=== PATIENT | female | born 1960 | race Caucasian/White ===

== ENCOUNTER → 2018-05-04 | Outpatient (CLI) | payer BC ==
--- NOTE | 2018-05-04 08:11 | US ---
EXAMINATION TYPE: US abdomen complete DATE OF EXAM: 05/04/2018 COMPARISON: NONE CLINICAL HISTORY: R94.5 Abnormal results of liver function studies. Abnormal labs EXAM MEASUREMENTS: Liver Length: 18.0 cm Gallbladder Wall: 0.2 cm CBD: 0.5 cm Spleen: 9.5 cm Right Kidney: 9.3 x 3.7 x 4.4 cm Left Kidney: 10.7 x 4.0 x 4.2 cm Pancreas: wnl, tail obscured by overlying bowel gas Liver: Difficult to penetrate, heterogeneous with probable fatty sparing near GB, cyst left lobe= 4. 3 x 3.2 x 4.3 cm Gallbladder: wnl Evidence for sonographic Kauffman's sign: No CBD: wnl Spleen: wnl Right Kidney: wnl Left Kidney: wnl Upper IVC: wnl Abd Aorta: wnl, distal portion gassed out The intrahepatic portion of the IVC and proximal abdominal aorta are within normal limits. There is no evidence of cholelithiasis. Common bile duct is unremarkable. The visualized portions of the pa ncreas are homogenous. The spleen is unremarkable. Kidneys are symmetric and free of hydronephrosis . No renal lesions are seen. IMPRESSION: 1. Probable hepatic steatosis with areas of focal fatty sparing. Hepatic cyst as noted.
== END ==
LOC: RADUSWWP 07:31
PROVIDERS: ATTEND Family Medicine
DX: K76.89 Other specified diseases of liver (principal)
CPT/HCPCS: 76700

== ENCOUNTER → 2018-12-21 | Outpatient (CLI) | payer BC ==
--- NOTE | 2018-12-21 18:17 | MR ---
EXAMINATION TYPE: MR shoulder RT wo con DATE OF EXAM: 12/21/2018 COMPARISON: Plain film 10/16/2018 HISTORY: Pain in right shoulder, fall TECHNIQUE: Multiplanar, multisequence imaging of the right shoulder is performed without contrast. FINDINGS: Rotator Cuff: There is a complete rotator cuff tear with retraction of the supraspinatus tendon to th e level of the acromion. The infraspinatus tendon is markedly attenuated and at least partially torn, subscapularis tendon also appears attenuated Acromioclavicular Joint: Hypertrophic changes are present at the acromioclavicular joint. Small spur suspected at the distal acromion Glenohumeral Joint: Shoulder is high riding. Labrum: Some increased signal within the superior labrum is noted, there may be an underlying some la bral foramen rather than superior labral tear Biceps Tendon: Fluid signal is present along the long head of biceps tendon which shows a normal posi tion peripherally by is subluxed medially possibly due to the injury of the subscapularis tendon Bone marrow signal: There is some geode formation, pseudocyst formation in the humeral head, some pro bable marrow edema present within the humeral head near the expected insertion of the rotator cuff Other: There is a joint effusion, fluid signal is present in the subacromial subdeltoid bursa and als o extending to the subscapularis musculature, there may be an underlying hematoma or muscle tear of t he subscapularis. IMPRESSION: Rotator cuff tear with retraction, subscapularis abnormal signal as described, additional findings ab ove.
== END | disposition home or self-care (01) ==
LOC: RADMRIMAIN 16:57
PROVIDERS: ATTEND Nurse Practitioner
DX: M75.101 Unspecified rotator cuff tear or rupture of right shoulder, not specified as traumatic (principal); M67.813 Other specified disorders of tendon, right shoulder

== ENCOUNTER → 2020-04-01 | Outpatient (CLI) | payer BC ==
--- NOTE | 2020-04-01 18:11 | US ---
EXAMINATION TYPE: US venous doppler duplex LE RT DATE OF EXAM: 04/01/2020 5:29 PM COMPARISON: NONE CLINICAL HISTORY: M79.661 pain right lower extremity. SIDE PERFORMED: Right TECHNIQUE: The lower extremity deep venous system is examined utilizing real time linear array sonog jam with graded compression, doppler sonography and color-flow sonography. VESSELS IMAGED: External Iliac Vein (EIV) Common Femoral Vein Deep Femoral Vein Greater Saphenous Vein * Femoral Vein Popliteal Vein Small Saphenous Vein * Proximal Calf Veins (* superficial vessels) There is normal flow, compressibility, vascular waveforms. Right Leg: Negative for DVT IMPRESSION: No evident deep venous thrombosis at or above the right knee
== END | disposition home or self-care (01) ==
LOC: RADUSWWP 17:26
PROVIDERS: ATTEND Family Medicine
DX: M79.661 Pain in right lower leg (principal)

== ENCOUNTER → 2020-05-28 | Outpatient (CLI) | payer BC ==
--- NOTE | 2020-05-28 10:01 | US ---
EXAMINATION TYPE: US abdomen complete DATE OF EXAM: 05/28/2020 COMPARISON: NONE CLINICAL HISTORY: R10.84 ABD PAIN, R10.2 PELVIC AND PERINEAL PAIN. Pain EXAM MEASUREMENTS: Liver Length: 18.1 cm Gallbladder Wall: .2 cm CBD: 0.4 cm Right Kidney: 9.9 x 3.8 x 5.2 cm Pancreas: wnl Liver: Simple appearing Cystic area left lobe liver measuring 4.8 x 3.7 x 4.4cm Gallbladder: wnl Evidence for sonographic Kauffman's sign: No CBD: wnl Spleen: wnl Right Kidney: wnl Left Kidney: wnl Upper IVC: wnl Abd Aorta: wnl IMPRESSION: 1. Hepatic cyst. 2. Hepatomegaly
--- NOTE | 2020-05-28 10:02 | US ---
EXAMINATION TYPE: US transvaginal DATE OF EXAM: 05/28/2020 COMPARISON: NONE CLINICAL HISTORY: R10.84 ABD PAIN, R10.2 PELVIC AND PERINEAL PAIN. Pain TECHNIQUE: Transvaginal (TV). Transabdominal sonographic images of the pelvis were acquired. Trans vaginal sonographic images were medically necessary to better assess the following anatomy: EXAM MEASUREMENTS: Uterus: 6.7 x 3.5 x 4.7 cm Endometrial Stripe: .3 cm 1. Uterus: Anteverted wnl 2. Endometrium: wnl 3. Right Ovary: Obscured by overlying bowel gas 4. Left Ovary: Obscured by overlying bowel gas 5. Bilateral Adnexa: wnl 6. Posterior cul-de-sac: wnl IMPRESSION: 1. Normal pelvic ultrasound as visualized.
== END | disposition home or self-care (01) ==
LOC: RADUSWWP 08:54
PROVIDERS: ATTEND Family Medicine
DX: K76.89 Other specified diseases of liver (principal); R16.0 Hepatomegaly, not elsewhere classified; R10.2 Pelvic and perineal pain
CPT/HCPCS: 76700; 76830

== ENCOUNTER → 2021-11-06 | Outpatient (CLI) | payer BC ==
--- NOTE | 2021-11-12 13:09 | MM ---
Reason for Exam: Screening (asymptomatic). Last mammogram was performed 3 year(s) and 1 month(s) ago. Patient History: Menarche at age 13. First Full-Term at age 19. Postmenopausal. Risk Values: Dominique 5 year model risk: 1.1%. NCI Lifetime model risk: 5.2%. Tissue Density: The breast tissue is heterogeneously dense. This may lower the sensitivity of mammography. Findings: Analyzed By CAD. Upper outer quadrant anterior focal asymmetry left breast is more defined from prior exams. This may represent superimposition shadow but further evaluation is recommended. Otherwise, no significant change. Overall Assessment: Incomplete: need additional imaging evaluation, BI-RAD 0 Management: Special View Mammogram of the left breast. 1. Additional views left breast to include spot 3-D CC, Spot 3-D MLO, and 3-D ML views. 2. Targeted left breast ultrasound if any persisting abnormality. Electronically signed and approved by: Katlin Brewer M.D. Radiologist
== END | disposition home or self-care (01) ==
LOC: RADMAMWWP 16:38
PROVIDERS: ATTEND Family Medicine
DX: Z12.31 Encounter for screening mammogram for malignant neoplasm of breast (principal); Z78.0 Asymptomatic menopausal state
CPT/HCPCS: 77067

== ENCOUNTER → 2021-12-16 | Outpatient (CLI) | payer BC ==
--- NOTE | 2021-12-17 09:58 | MM ---
Reason for Exam: Additional evaluation requested from abnormal screening. Last screening mammogram was performed 1 month(s) ago. Patient History: Menarche at age 13. First Full-Term at age 19. Postmenopausal. Risk Values: Dominique 5 year model risk: 1.1%. NCI Lifetime model risk: 5.2%. Prior Study Comparison: 03/03/2012 Bilateral MG screening mammo w CAD - 2, [facility]. 09/29/2018 Bilateral MG screening mammo w CAD - 2, [facility]. 11/06/2021 Bilateral MG screening mammo w CAD, [facility]. Tissue Density: Left: The breast tissue is heterogeneously dense. This may lower the sensitivity of mammography. Findings: Analyzed By CAD. No dominant mass or architectural distortion. No suspicious grouped calcifications. Overall Assessment: Probably benign, BI-RAD 3 Management: Diagnostic Mammogram of the left breast in 6 months. A clinical breast exam by your physician is recommended on an annual basis and results should be correlated with mammographic findings. Results were given to the patient verbally at the time of exam. Electronically signed and approved by: Binh Matute M.D. Radiologis
== END | disposition home or self-care (01) ==
LOC: RADMAMWWP 14:58
PROVIDERS: ATTEND Family Medicine
DX: R92.8 Other abnormal and inconclusive findings on diagnostic imaging of breast (principal); Z78.0 Asymptomatic menopausal state
CPT/HCPCS: 77065

== ENCOUNTER → 2022-10-27 | Outpatient (CLI) | payer BC ==
--- NOTE | 2022-10-27 11:38 | CA ---
Exercise Stress Test Report Name: Diana Eduardo Exam Date: 10/27/2022 09:40 Exam Location: [place] Stress Ht (in): 62 Wt (lb): 160 BSA: 1.74 Ordering Phys: Roxanna Neri DO Referring Phys: Mary Swenson [facility] Technologist: Melchor Malagon Age: 61 Gender: F : 1960 Procedure CPT: Indications: R07.89 other chest pain ICD-10 Codes: Patient History: Chest pain Medications: Meds past 24 hrs: Pretest Chest Pain: STRESS TEST Bharat Protocol Exercise Duration (min:sec): 08:[address] Depressions (mm): Angina Score: Beyer Score: Resting HR (bpm): 64 Peak HR (bpm): 136 Resting BP (mmHg): 161 / 95 Peak BP (mmHg): 183 / 89 MPHR: 159 Target HR: 135 % MPHR: 86 METS: 10.3 Total Dose: Peak Dose: Atropine: Double Product: [id number] BP Response: Stress Termination: TARGET HR REACHED/MAX EXERTION Stress Symptoms: NO SYMPTOMS Stress Summary: ECG ANALYSIS Resting ECG: Normal sinus rhythm normal axis normal intervals Stress ECG: No significant ST segment depression CONCLUSIONS above average exercise tolerance Negative stress test by EKG criteria Dr. Aurelio Iasbel MD (Electronically Signed) Final Date: 27 Oct 2022 11:37
== END | disposition home or self-care (01) ==
LOC: RADNMMAIN 08:44
PROVIDERS: ATTEND Family Medicine
DX: R07.89 Other chest pain (principal)
CPT/HCPCS: 93017

== ENCOUNTER → 2022-11-24 | Outpatient (CLI) | payer BC ==
--- NOTE | 2022-11-24 09:11 | MM ---
Reason for Exam: Additional evaluation requested from prior study. Last screening mammogram was performed 12 month(s) ago. Patient History: Menarche at age 13. First Full-Term at age 19. Postmenopausal. Patient has history of breast feeding. Risk Values: Dominique 5 year model risk: 1.1%. NCI Lifetime model risk: 5.0%. Prior Study Comparison: 03/03/2012 Bilateral MG screening mammo w CAD - 2, [facility]. 09/29/2018 Bilateral MG screening mammo w CAD - 2, [facility]. 11/06/2021 Bilateral MG screening mammo w CAD, [facility]. 12/16/2021 Left MG work up mamm w CAD LT, [facility]. Tissue Density: There are scattered fibroglandular densities. Findings: Analyzed By CAD. Stable fibroglandular tissue. No new suspicious masses, calcifications or distortions. Overall Assessment: Benign, BI-RAD 2 Management: Screening Mammogram of both breasts in 1 year. Results were given to the patient verbally at the time of exam. Patient should continue monthly self-breast exams. A clinical breast exam by your physician is recommended on an annual basis. This exam should not preclude additional follow-up of suspicious palpable abnormalities. Note on Dominique scores and lifetime risk: 1. A Dominique score greater than 3% is considered moderate risk. If this is the case, consider specialist referral to assess eligibility for a risk reducing agent. 2. If overall lifetime risk for the development of breast cancer is 20% or higher, the patient may qualify for future screening with alternating mammogram and breast MRI. Electronically signed and approved by: Quang Soto DO
--- NOTE | 2022-11-24 13:54 | BD ---
EXAMINATION TYPE: Axial Bone Density DATE OF EXAM: 11/24/2022 CLINICAL HISTORY: 62 years old Female. ICD-10 CODE: Z78.0 MENOPAUSAL STATE Height: 5 ft 1 in Weight: 162 FRAX RISK QUESTIONS: Alcohol (3 or more units per day): no Family History (Parent hip fracture): no Glucocorticoids (More than 3mos): no (Ex: prednisone, prednisolone, methylprednisolone, dexamethasone, and hydrocortisone). History of Fracture in Adulthood: yes Secondary Osteoporosis: 1. Type 1 Diabetes: no 2. Hyperthyroidism: no 3. Menopause before 45: yes 4. Malnutrition: no 5. Chronic liver disease: no Rheumatoid Arthritis: no Current Tobacco Use: no RISK FACTORS HISTORY OF: Surgery to Spine/Hip(right/left)/Wrist (right/left): no Family History of Osteoporosis: no Active: yes Diet low in dairy products/other sources of calcium: no Postmenopausal woman: yes Take estrogen and/or progesterone medications: no Lost more than 2 inches in height since high school: no Frequent falls: no Poor Health: good Hyperparathyroidism: no Adrenal Insufficiency: no MEDICATIONS: Additional Medications: Tramadol, fibromyalgia meds, meloxicam, Lyrica, Additional History: carpal tunnel surg and cyst removed EXAM MEASUREMENTS: Bone mineral densitometry was performed using the [employer]. Bone mineral density as measured about the Lumbar spine is: ----- L1-L4(G/cm2): 1.254 T Score Values are as follows: ----- L1: 0.1 ----- L2: -0.2 ----- L3: -0.3 ----- L4: 2.1 ----- L1-L4: 0.6 Z Score Values are as follows: ----- L1: 1.2 ----- L2: 0.9 ----- L3: 0.8 ----- L4: 3.2 ----- L1-L4: 1.7 baseline Bone mineral density about the R hip (g/cm2): 1.088 Bone mineral density about the L hip (g/cm2): 1.049 T Score values are as follows: -----R Neck: 0.4 -----L Neck: 0.1 -----R Total: 1.6 -----L Total: 1.1 Z Score values are as follows: -----R Neck: 1.5 -----L Neck: 1.2 -----R Total: 2.4 -----L Total: 1.9 baseline FRAX%s: The graph provided illustrates a 6.1 % chance for a major osteoporotic fx and a 0.1% chance f or the hips probability for fx in 10 years time. IMPRESSION: Normal (Values between +1 and -1 indicate normal bone mass). Consider repeating this study in 5 year s or sooner if there is some new clinical indication. NOTE: T-SCORE=SD OF THE YOUNG ADULT MEAN.
== END | disposition home or self-care (01) ==
LOC: RADMAMWWP 08:00
PROVIDERS: ATTEND Family Medicine
DX: R92.8 Other abnormal and inconclusive findings on diagnostic imaging of breast (principal); Z78.0 Asymptomatic menopausal state
CPT/HCPCS: 77062; 77066; 77080